=== PATIENT | female | born 1975 | race African-American/Black ===

== ENCOUNTER 2017-02-07 11:14 | Outpatient (CLI) | payer BC ==
[2017-02-07] MEDS ORDERED: DEXTROSE 5%-LACTATED RINGERS 1,000 ML IV SCH (11:45)
[2017-02-07] MEDS ORDERED: ACETAMINOPHEN IV (For NPO) 1,000 MG in EMPTY BAG 1 BAG IVPB ONE (12:00)
[2017-02-07 12:13] VITALS: BP 119/67; PULSE 105; RESP 18; TEMP 97.9
--- NOTE | 2017-03-09 09:21 | P.MSEPDOC ---
Presenting Problems - Arrival Data Date of Arrival on Unit: 02/07/17 Time of Arrival on Unit: 11:19 Mode of Transport: Wheelchair - Complaint OB-Reason for Admission/Chief Complaint: Observation/Evaluation, Dizziness Comment: pt feeling flu like symptoms, body aches, dizzy Medical History - Information : 4 Para: 1 Term: 1 : 0 Abortions: Spontaneous or Elective: 2 Number of Living Children: 1 - Gestational Age Gestational Age by JOSE MARIA (wks/days): 36 Weeks and 6 Days Review of Systems - Review of Systems Constitutional: No problems Breast: No problems ENT: No problems Cardiovascular: No problems Respiratory: No problems Gastrointestinal: No problems Genitourinary: No problems Musculoskeletal: No problems Neurological: Dizziness Skin: No problems Vital Signs - Temperature Temperature: 97.9 F Temperature Source: Oral - Pulse Right Sitting Brachial Pulse Rate: 105 Pulse Assessment Method: Automatic Cuff - Respirations Respiratory Rate: 18 O2 Sat by Pulse Oximetry: 99 - Blood Pressure Right Arm Blood Pressure: 119/67 Blood Pressure Mean: 84 Blood Pressure Source: Automatic Cuff Medical Screen Scoring (Pre) - Cervical Exam Dilation: Exam Deferred Effacement: Exam Deferred Membranes: Intact - Uterine Contractions Frequency: N/A - Maternal Vital Signs Maternal Temperature: N/A - Maternal Trauma Maternal Trauma: N/A - Assessment Baseline FHR: 135 Heart Rate - NICHD Category: Category I (Normal) = 0 NST: Reactive Station: N/A - Total Score Total Score (Pre): 0 - Level of Risk Level of Risk: Low (0-5) Physician Notification (Pre) - Physician Notified Physician Notified Date: 02/07/17 Physician Notified Time: 11:35 Physician/Practitioner Notifed:: Cassie Spoke With: Cassie New Order Received: Yes - Notification Comment Comment: pt discharged home per drs order Disposition - Disposition OB Disposition: Discharge to home Discharge Date: 02/07/17 Discharge Time: 12:31 I agree with the RN Medical Screening Exam: Yes Risk & Benefit of care provided described in d/c instruction: Yes Diagnosis: FALSE LABOR AT OR AFTER 37 COMPLETED WEEKS OF GESTATION
== END 2017-02-07 12:32 | disposition home or self-care (01) ==
LOC: FBPOP 11:14
PROVIDERS: ATTEND Obstetrics & Gynecology
DX: O47.1 False labor at or after 37 completed weeks of gestation (principal); Z3A.36 36 weeks gestation of pregnancy
CPT/HCPCS: 59025; 99214; 96360; 96367; J0131

== ENCOUNTER 2017-02-23 22:42 | Inpatient (IN) | payer BC ==
[2017-02-23] MEDS ORDERED: ceFAZolin 2 GM in SODIUM CHLORIDE 0.9% 100 ML IVPB ONE (23:01)
[2017-02-23] MEDS ORDERED: CITRIC ACID-SODIUM CITRATE 15 ML CUP PO ONE (23:01)
[2017-02-23] MEDS ORDERED: LACTATED RINGERS 1,000 ML IV ONE (23:01)
[2017-02-23] MEDS ORDERED: MORPHINE SULFATE (PF) 0.3 MG/0.3 ML SYR ONE (23:08)
[2017-02-23] MEDS ORDERED: NALBUPHINE 10 MG/ML AMPUL ONE (23:08)
[2017-02-23] MEDS ORDERED: ONDANSETRON 4 MG/2 ML VIAL ONE (23:08)
[2017-02-23] MEDS ORDERED: OXYTOCIN 10 UNIT/ML 1 ML VIAL ONE (23:08)
[2017-02-23] MEDS ORDERED: ePHEDrine SULFATE/0.9% NACL/PF 50 MG/5 ML SYRINGE IV ONE (23:08)
--- NOTE | 2017-02-24 00:11 | P.HPOB ---
History of Present Illness H&P Date: 02/24/17 Chief Complaint: Contractions, term , history of 1, spontaneous rupture This is a 42-year-old 4 para 10-1 at 39-0/7 weeks. She presents to labor and delivery with complaints of rupture of membranes, clear in nature at 2145. She states she has been mark most of the day and this began around 4 PM when they became regular. On presentation she was 7 cm dilated and the was called at that time. Anesthesia was present. She noted good movement throughout the day and denied vaginal bleeding at this time. blood work showed a blood type of O+ she was rubella immune, her RPR was nonreactive, hepatitis surface antigen negative, HIV negative. Past Medical History Past Medical History: Skin Disorder Additional Past Medical History / Comment(s): varicose veins,eczema cecelia feet History of Any Multi-Drug Resistant Organisms: None Reported Past Surgical History: Section, Orthopedic Surgery Additional Past Surgical History / Comment(s): left knee bone bx Past Anesthesia/Blood Transfusion Reactions: Family History of Problems w/ Anesthesia Additional Past Anesthesia/Blood Transfusion Reaction / Comment(s): mother has PONV,no problems with prior blood transfusion Smoking Status: Never smoker - Past Family History Father Family Medical History: No Reported History Mother Family Medical History: No Reported History Medications and Allergies Home Medications Medication Instructions Recorded Confirmed Type Ferrous Sulfate [Iron] 325 mg PO DAILY 02/23/17 02/23/17 History Yor-Mwrh-Ngcqo Acid 1 cap PO DAILY 02/23/17 02/23/17 History [-U Capsule (formulary)] Allergies Allergy/AdvReac Type Severity Reaction Status Date / Time aspirin Allergy Rash/Hives Verified 02/23/17 22:47 coconut Allergy Itching Verified 02/23/17 22:47 codeine Allergy chills Verified 02/23/17 22:47 egg Allergy Itching Verified 02/23/17 22:47 erythromycin base Allergy Rash/Hives Verified 02/23/17 22:47 latex Allergy Rash/Hives Verified 02/23/17 22:47 onion Allergy Itching Verified 02/23/17 22:47 tree nut [Nut] Allergy Itching Verified 02/23/17 22:47 Exam Osteopathic Statement: *. No significant issues noted on an osteopathic structural exam other than those noted in the History and Physical/Consult. - Vital Signs Vital signs: Vital Signs Temp Pulse Resp BP 02/23/17 22:48 98.2 F 81 18 126/94 Intake and Output 02/23/17 02/23/17 02/24/17 14:59 22:59 06:59 Other: Weight 87.09 kg Patient Weight 02/24/17 06:59 Weight 87.09 kg - OBG Physical Exam Abdomen: Gravid and appropriate for gestational age Cervix: 8 cm, 90%, -1 station Uterus: enlarged Assessment and Plan (1) Term Status: Acute (2) H/O section Narrative/Plan: Proceed with repeat per prior conversation in the office with patient. Risks were reviewed with patient in detail at that time in the office including but not limited to infection bleeding damage to bladder, bowel, ureteric, injury. Informed consent was obtained at that visit in the office. All questions were answered to patient's satisfaction Status: Acute (3) SROM (spontaneous rupture of membranes) Status: Acute (4) Active labor at term Status: Acute
[2017-02-24 00:16] VITALS: BMI 27.5
[2017-02-24] MEDS ORDERED: IBUPROFEN 600 MG TAB PO PRN (00:16)
[2017-02-24] MEDS ORDERED: ONDANSETRON 4 MG/2 ML VIAL IVP PRN (00:16)
--- NOTE | 2017-02-24 00:16 | P.OP ---
Date of Procedure: 02/24/17 Preoperative Diagnosis: IUP at 39-0/7 weeks, active labor, spontaneous rupture of membranes, history of 1 desires repeat Postoperative Diagnosis: Same Procedure(s) Performed: Repeat section Anesthesia: spinal Surgeon: Lawanda Guillen [employer]: [employer] Estimated Blood Loss (ml): 600 IV fluids (ml): 800 Urine output (ml): 50 Pathology: other (Placenta) Condition: stable Disposition: PACU Indications for Procedure: History of 1, desires repeat Operative Findings: Normal ovaries bilaterally Description of Procedure: Patient was taken to the operating room where spinal anesthesia was found to be adequate by the anesthesia department. She was prepped and draped in the normal sterile fashion in the dorsal supine position. A Pfannenstiel skin incision was made through her prior incision down to the underlying layer of fascia the fascia was then incised in the midline and this incision was extended laterally. The superior aspect of the fascial incision was then grasped with [place] clamps, elevated and underlying rectus muscle was dissected off sharply and bluntly. The inferior aspect of the fascial incision was then grasped with [place] clamps elevated with the underlying rectus muscle dissected off sharply once again. The rectus muscles were in the midline and peritoneum was identified and entered. The bladder blade was then introduced into the abdomen and a bladder flap was then created using sharp and blunt dissection. The bladder blade was then reinserted. Scalpel was then used to make a hysterotomy incision, clear amniotic fluid was noted. The was then delivered atraumatically and handed off to waiting pediatric surgeon. The placenta was then delivered manually and the uterus was cleared of all clots and debris. The uterus was then exteriorized and the hysterotomy incision was closed with 0 Vicryl in a running locked fashion. A defect was noted on the right side of the hysterotomy incision therefore 0 Vicryl in a running fashion was used to repair. Hemostasis was appreciated. The uterus was then returned to the abdomen. The gutters were cleared of all clots and debris the hysterotomy site was inspected once again hemostasis was noted. The fascial incision was then closed with 0 Vicryl in a running fashion from one lateral edge the midline and the other lateral edge the midline. The subcutaneous tissue was then irrigated, hemostasis was appreciated and the skin was closed with 4-0 Vicryl in a subcuticular fashion. Steri-Strips and a pressure dressing were applied. All counts were correct 2 patient tolerated procedure well and was taken to her room in stable condition
[2017-02-24] MEDS ORDERED: HYDROcodone/APAP 5-325MG 1 EACH TAB PO PRN ×2 (00:19)
[2017-02-24 01:24] LABS: Basophils % (A) 0 %; CH 28.9; CHCM 33.2; Eosinophils % (A) 0 %; HCT 36.3 % (34.0-46.0); HGB 11.8 gm/dL (11.4-16.0); Luc # (Auto) 0.06; Luc % (Auto) 0; Lymphocytes # (A) 1.1 k/uL (1.0-4.8); Lymphocytes % (A) 7 %; MCH 28.4 pg (25.0-35.0); MCHC 32.4 g/dL (31.0-37.0); MCV 87.8 fL (80.0-100.0); Mean Platelet Volume 7.9; Monocytes # (A) 0.4 k/uL (0-1.0); Monocytes % (A) 3 %; Neutrophils # (A) 13.5 k/uL (1.3-7.7); Neutrophils % (A) 90 %; RBC 4.14 m/uL (3.80-5.40); RDW 14.5 % (11.5-15.5); WBC 15.1 k/uL (3.8-10.6); WBC (Perox) 17.08
[2017-02-24] MEDS: LACTATED RINGERS 1,000 ML IV SCH ×4 (01:29→16:33)
[2017-02-24] MEDS: KETOROLAC 30 MG/ML 1 ML VIAL IVP PRN (02:24)
--- NOTE | 2017-02-24 05:37 | P.PN ---
Subjective Principal diagnosis: Status post repeat , hemorrhage This is a very pleasant 41-year-old 0-1 that presented last evening with complaints of rupture of membranes, painful contractions. She was noted to be 8 cm when I arrived incision was made to take the patient back to the operating room for repeat . went well upon leaving the operating room clear yellow urine was noted uterus was firm below the umbilicus bleeding was scant at that time. Sometime around 4 AM patient was noted to have increased bleeding and uterus was noted to be 2 finger breaths above the umbilicus. She had proximal he 150 mL out since surgery and at this point after multiple Cred attempts urine had turned pink. I was called to see the patient upon examination the uterus is noted to be full of large clots. Approximately 3-400 mL of clots were removed from the uterine cavity. The Tomlin catheter was inspected pink tinged urine was still noted and a 500 mL bolus of LR was started Objective - Vital Signs Vital signs: Vital Signs Temp 98.0 F 02/24/17 04:15 Pulse 96 02/24/17 04:15 Resp 16 02/24/17 04:15 BP 129/70 02/24/17 04:15 Pulse Ox 98 02/24/17 02:52 Intake & Output 02/23/17 02/23/17 02/24/17 06:59 18:59 06:59 Output Total 100 Balance -100 Weight 87.09 kg Output: Urine 100 Uretheral (Tomlin) 0 - Constitutional General appearance: Present: average body habitus, cooperative, no acute distress - Respiratory Respiratory: bilateral: CTA - Genitourinary Genitourinary Comment(s): On initial exam uterus is noted to be enlarged and above the umbilicus, after Cred attempts uterus was firm to below or at the umbilicus - Labs CBC & Chem 7: 02/24/17 01:07 Labs: Abnormal Lab Results - Last 24 Hours (Table) 02/24/17 Range/Units 01:07 WBC 15.1 H (3.8-10.6) k/uL Neutrophils # 13.5 H (1.3-7.7) k/uL Assessment and Plan (1) Term Status: Acute (2) H/O section Status: Acute (3) SROM (spontaneous rupture of membranes) Status: Acute (4) Active labor at term Status: Acute (5) atony of uterus with hemorrhage Narrative/Plan: Stat CBC was obtained Will monitor urine output and 500 mL bolus of LR was begun upon entry to the room. In addition Kefzol 1 G Every 83 Will Be Started Status: Acute
[2017-02-24] MEDS ORDERED: METHYLERGONOVINE 0.2 MG/ML 1 ML AMP IM ONE (05:47)
[2017-02-24 06:14] LABS: Basophils % (A) 0 %; CH 28.9; CHCM 32.8; Eosinophils % (A) 0 %; HCT 29.6 % (34.0-46.0); HDW 2.79; Luc # (Auto) 0.15; Luc % (Auto) 1; Lymphocytes # (A) 1.4 k/uL (1.0-4.8); Lymphocytes % (A) 9 %; MCH 29.1 pg (25.0-35.0); MCHC 32.8 g/dL (31.0-37.0); MCV 88.6 fL (80.0-100.0); Mean Platelet Volume 8.7; Monocytes # (A) 0.5 k/uL (0-1.0); Monocytes % (A) 4 %; Neutrophils # (A) 13.1 k/uL (1.3-7.7); Neutrophils % (A) 86 %; RBC 3.34 m/uL (3.80-5.40); RDW 14.3 % (11.5-15.5); WBC 15.2 k/uL (3.8-10.6)
[2017-02-24 06:26] LABS: HGB 9.7 gm/dL (11.4-16.0)
[2017-02-24] MEDS ORDERED: OXYTOCIN 20 UNITS/1000 ML NS 1,000 ML IV SCH (06:45)
[2017-02-24] MEDS ORDERED: MISOPROSTOL 200 MCG TAB RECTAL STA (06:53)
[2017-02-24] MEDS ORDERED: MORPHINE SULFATE 4 MG/ML SYRINGE IVP PRN (07:28)
[2017-02-24] MEDS ORDERED: METOCLOPRAMIDE 5 MG/ML 2 ML VIAL IVP PRN (08:07)
[2017-02-24] MEDS ORDERED: NALBUPHINE 10 MG/ML AMPUL IV PRN (08:07)
[2017-02-24] MEDS ORDERED: PROMETHAZINE INJ 6.25 MG in SODIUM CHLORIDE 0.9% 50 ML IVPB PRN (08:07)
[2017-02-24] MEDS ORDERED: NALOXONE 0.4 MG/ML 1 ML VIAL IV PRN ×2 (08:07→12:26)
[2017-02-24] MEDS ORDERED: diphenhydrAMINE 50 MG/ML 1 ML VIAL IVP PRN (08:07)
--- NOTE | 2017-02-24 08:24 | P.PNOBGPC ---
Subjective - Subjective Principal diagnosis: IUP at 39-0/7 weeks, spontaneous rupture of membranes, active labor, postpa Interval history: After her Monse was noted to have hemorrhage. She was given an extra bag of Pitocin per protocol, and Methergine. Urine output has been noted to be decreased most likely secondary to her bleeding. hemoglobin was noted to go from 11.8-9.8. She has had stable vital signs the entire time. Approximately 727 this morning I received another phone call with concern from the nurse that the patient was uncomfortable with plan of care. She had recently had Cytotec 1000 g placed rectally. Her bleeding was noted to be stable at the time and her fundus was firm at the umbilicus. She noted minimal urine output at this time but there was urine in the catheter. Dr. Matthews was on the unit at the time she went in to evaluate the patient she stated that the uterus was firm she did manual exploration of the uterine cavity she noted the cervix to be 5-6 cm dilated approximately 200 mL of clot were evacuated from the lower uterine segment. She felt that the uterus was firming up and the patient was stable and doing well at this time. I came to see the patient approximately 740 10/05/1950 at this time she was holding her infant her uterus was firm there was yellow urine in the Tomlin catheter and her vital signs were noted to be stable. She was noted to be a little tachycardic but her heart rate had been coming down since her manual exploration from Dr. Matthews. Her pain is well controlled. She states she is hungry and she wishes to keep breakfast. Patient reports: Reports appetite normal, Reports pain well controlled : doing well (At the bedside) Objective - Vital Signs Latest vital signs: Vital Signs Temp Pulse Resp BP Pulse Ox 02/24/17 08:00 120 H 02/24/17 06:45 81 16 107/59 02/24/17 06:20 95 16 116/53 02/24/17 06:01 99 16 103/64 02/24/17 05:50 116 H 16 131/71 02/24/17 05:40 100 16 110/67 02/24/17 04:15 98.0 F 96 16 129/70 02/24/17 02:52 98 02/24/17 02:06 64 16 123/64 02/24/17 01:36 65 16 122/59 02/24/17 01:06 65 16 120/58 02/24/17 00:51 92 16 124/62 02/24/17 00:36 62 16 126/61 02/24/17 00:21 71 16 146/65 02/24/17 00:03 97.8 F 80 16 111/56 02/24/17 00:00 98.2 F 81 18 126/94 02/23/17 22:48 98.2 F 81 18 126/94 Intake and Output 02/23/17 02/24/17 02/24/17 22:59 06:59 14:59 Output Total 150 Balance -150 Output: Urine 150 Uretheral (Tomlin) 0 Other: Voiding Method Indwelling Catheter Weight 87.09 kg - Exam Abdomen: Present: normal appearance Incision: Present: normal, intact Uterus: Present: firm - Labs Labs: Abnormal Lab Results - Last 24 Hours (Table) 02/24/17 02/24/17 Range/Units 01:07 05:52 WBC 15.1 H 15.2 H (3.8-10.6) k/uL RBC 3.34 L (3.80-5.40) m/uL Hgb 9.7 L D (11.4-16.0) gm/dL Hct 29.6 L (34.0-46.0) % Neutrophils # 13.5 H 13.1 H (1.3-7.7) k/uL Assessment and Plan (1) Term Current Visit: Yes Status: Acute Code(s): Z34.80 - ENCOUNTER FOR SUPRVSN OF NORMAL , UNSP TRIMESTER SNOMED Code(s): 19630546 (2) H/O section Current Visit: Yes Status: Acute Code(s): Z98.891 - HISTORY OF UTERINE SCAR FROM PREVIOUS SURGERY SNOMED Code(s): 237932831 (3) SROM (spontaneous rupture of membranes) Current Visit: Yes Status: Acute Code(s): ZRM8829 - SNOMED Code(s): 253227319 (4) Active labor at term Current Visit: Yes Status: Acute Code(s): MEM1584 - SNOMED Code(s): 24128052 (5) atony of uterus with hemorrhage Narrative/Plan: We will continue to monitor closely, CBC this evening for further evaluation of acute blood loss anemia. Close evaluation of urine output and will initiate a 500 mL LR bolus of fluids Current Visit: Yes Status: Acute Code(s): O72.1 - OTHER IMMEDIATE HEMORRHAGE SNOMED Code(s): 35519378
[2017-02-24] MEDS: PRENATAL VIT-IRON-FOLIC ACID 1 EACH CAP PO SCH (08:50)
[2017-02-24] MEDS: FERROUS SULFATE 325 MG TAB PO SCH (08:50)
[2017-02-24] MEDS: ceFAZolin 1,000 MG in DEXTROSE/WATER 1 50ML.BAG IVPB SCH ×2 (08:51→16:05)
--- NOTE | 2017-02-24 12:26 | P.PN ---
Progress Note - Text Date:02/04 Time:646 Patient is status post []. Patient seen this morning with VAS score of [2].no c/o of pruritus, no c/o nausea/vomiting, comfortable and doing well.
[2017-02-24 15:37] LABS: CH 27.9; CHCM 31.3; HCT 21.9 % (34.0-46.0); HDW 2.78; Hypochromasia Slight; MCH 29.4 pg (25.0-35.0); MCHC 32.8 g/dL (31.0-37.0); MCV 89.8 fL (80.0-100.0); RBC 2.43 m/uL (3.80-5.40); WBC 13.5 k/uL (3.8-10.6)
[2017-02-24 15:45] LABS: HGB 7.2 gm/dL (11.4-16.0)
[2017-02-24] MEDS: ACETAMINOPHEN TAB 325 MG TAB PO PRN (19:53)
[2017-02-24] MEDS: SENNOSIDES-DOCUSATE SODIUM 1 EACH TAB PO SCH (19:53)
[2017-02-25] MEDS: ceFAZolin 1,000 MG in DEXTROSE/WATER 1 50ML.BAG IVPB SCH (00:16)
[2017-02-25] MEDS: LACTATED RINGERS 1,000 ML IV SCH ×2 (03:32→20:14)
[2017-02-25] MEDS: KETOROLAC 30 MG/ML 1 ML VIAL IVP PRN (06:51)
--- NOTE | 2017-02-25 08:14 | P.PNOBGPC ---
Subjective - Subjective Principal diagnosis: Status post repeat , hemorrhage Patient reports: Reports appetite normal, Reports pain well controlled, Reports ambulating normally : doing well (At the bedside with mom) Objective - Vital Signs Latest vital signs: Vital Signs Temp Pulse Resp BP Pulse Ox 02/25/17 05:00 99.1 F 02/25/17 03:35 99.0 F 100 15 119/58 99 02/25/17 00:00 98.9 F 94 16 116/59 98 02/24/17 20:00 99.3 F 106 H 16 113/60 98 02/24/17 15:54 98.2 F 103 H 18 119/60 02/24/17 15:53 99 02/24/17 13:00 16 02/24/17 12:00 102 H 16 119/56 100 02/24/17 11:07 15 02/24/17 09:07 100 Intake and Output 02/24/17 02/25/17 02/25/17 22:59 06:59 14:59 Intake Total 2650 100 Output Total 300 2150 200 Balance 2350 -2049 -200 Intake: IV 1150 Lactated Ringers 1,000 ml 1000 @ 125 mls/hr IV .Q8H CHANA Rx#:[id number] ceFAZolin 1,000 mg In 150 Dextrose/Water 1 50ml.bag @ 100 mls/hr IVPB Q8HR FORMERLY [facility], [facility]–1983 Rx#:[id number] Intake, IV Titration 900 100 Amount Lactated Ringers 1,000 ml 900 @ 4000 mls/hr IV .Q15M ONE Rx#:[id number] ceFAZolin 1,000 mg In 100 Dextrose/Water 1 50ml.bag @ 100 mls/hr IVPB Q8HR FOR[facility], 1928–1983 Rx#:[id number] Oral 600 Output: Urine 300 2150 200 Uretheral (Tomlin) 1400 Other: # Voids 1 # Bowel Movements 0 - Exam Lungs: bilateral: normal Extremities: Present: normal Abdomen: Present: normal appearance Incision: Present: normal, dry, intact Uterus: Present: firm - Labs Labs: Abnormal Lab Results - Last 24 Hours (Table) 02/24/17 Range/Units 15:26 WBC 13.5 H (3.8-10.6) k/uL RBC 2.43 L (3.80-5.40) m/uL Hgb 7.2 L D (11.4-16.0) gm/dL Hct 21.9 L (34.0-46.0) % Assessment and Plan (1) Term Current Visit: Yes Status: Acute Code(s): Z34.80 - ENCOUNTER FOR SUPRVSN OF NORMAL , UNSP TRIMESTER SNOMED Code(s): 74407691 (2) H/O section Narrative/Plan: Monse is doing well this morning. She is ambulating without difficulty. She is without fever or chills. Her lochia is scant at this time. She denies pain, we are awaiting spontaneous void after Tomlin removal early this morning. She had an adequate output of approximately 1400 mL overnight. She is breast- feeding without difficulty baby girl sury Current Visit: Yes Status: Acute Code(s): Z98.891 - HISTORY OF UTERINE SCAR FROM PREVIOUS SURGERY SNOMED Code(s): 375917792 (3) SROM (spontaneous rupture of membranes) Current Visit: Yes Status: Acute Code(s): IAP6118 - SNOMED Code(s): 438789407 (4) Active labor at term Current Visit: Yes Status: Acute Code(s): LMK7654 - SNOMED Code(s): 15300555 (5) atony of uterus with hemorrhage Current Visit: Yes Status: Acute Code(s): O72.1 - OTHER IMMEDIATE HEMORRHAGE SNOMED Code(s): 02772693 (6) Acute blood loss anemia Narrative/Plan: Stable at this time will await morning hemoglobin. She is without dizziness with ambulation. We will plan to keep Monse in-house until tomorrow. If she continues to be stable we will consider discharge tomorrow morning Current Visit: Yes Status: Acute Code(s): D62 - ACUTE POSTHEMORRHAGIC ANEMIA SNOMED Code(s): 892914644
[2017-02-25 08:33] LABS: Basophils % (A) 0 %; CH 28.3; CHCM 31.7; Eosinophils # (A) 0.1 k/uL (0-0.7); Eosinophils % (A) 0 %; HDW 2.72; Hypochromasia Slight; Luc # (Auto) 0.19; Luc % (Auto) 2; Lymphocytes # (A) 1.6 k/uL (1.0-4.8); Lymphocytes % (A) 13 %; MCH 28.2 pg (25.0-35.0); MCHC 31.4 g/dL (31.0-37.0); MCV 89.8 fL (80.0-100.0); Mean Platelet Volume 8.3; Monocytes # (A) 0.5 k/uL (0-1.0); Monocytes % (A) 4 %; Neutrophils % (A) 81 %; RBC 2.05 m/uL (3.80-5.40); RDW 14.3 % (11.5-15.5); WBC 12.3 k/uL (3.8-10.6); WBC (Perox) 12.75
[2017-02-25 08:36] LABS: HGB 5.8 gm/dL (11.4-16.0)
[2017-02-25 08:37] LABS: HCT 18.4 % (34.0-46.0)
[2017-02-25] MEDS: PRENATAL VIT-IRON-FOLIC ACID 1 EACH CAP PO SCH (10:48)
[2017-02-25] MEDS: FERROUS SULFATE 325 MG TAB PO SCH (10:48)
[2017-02-25] MEDS: SENNOSIDES-DOCUSATE SODIUM 1 EACH TAB PO SCH ×2 (10:49→20:15)
[2017-02-25 18:26] LABS: CH 29.3; CHCM 33.4; HCT 20.6 % (34.0-46.0); HDW 2.99; MCH 28.7 pg (25.0-35.0); MCHC 32.5 g/dL (31.0-37.0); MCV 88.5 fL (80.0-100.0); Mean Platelet Volume 8.2; RBC 2.33 m/uL (3.80-5.40); RDW 14.5 % (11.5-15.5); WBC 13.5 k/uL (3.8-10.6)
[2017-02-25 18:42] LABS: HGB 6.7 gm/dL (11.4-16.0)
[2017-02-26] MEDS: ACETAMINOPHEN TAB 325 MG TAB PO PRN ×2 (03:28→13:10)
--- NOTE | 2017-02-26 08:26 | P.PNOBGPC ---
Subjective - Subjective Principal diagnosis: day #3 status post repeat , hemorrhage Interval history: Monse did well overnight. Today her only complaint is uterine contractions with nursing. She states her lochia is minimal. She denies pain, and has only been using Tylenol for discomfort. She is ambulating without lightheadedness, dizziness. She denies any dysuria. She is afebrile. Patient reports: Reports appetite normal, Reports voiding normally, Reports pain well controlled, Reports ambulating normally [place]: doing well Objective - Vital Signs Latest vital signs: Vital Signs Temp Pulse Pulse Resp BP BP Pulse Ox 02/26/17 00:00 98.0 F 80 16 118/74 02/25/17 16:00 98.7 F 99 16 115/62 100 02/25/17 12:00 99 02/25/17 10:57 98.1 F 92 16 107/57 100 02/25/17 10:27 98.3 F 97 16 114/63 99 02/25/17 10:19 98.9 F 97 16 104/55 98 02/25/17 10:12 98.4 F 95 16 110/50 98 02/25/17 10:07 98.9 F 95 16 102/54 98 02/25/17 09:57 98.7 F 104 H 16 99/57 99 02/25/17 09:47 98.6 F 97 16 117/57 99 Intake and Output 02/25/17 02/26/17 02/26/17 22:59 06:59 14:59 Output Total 800 400 Balance -800 -400 Output: Urine 800 400 - Exam Lungs: bilateral: normal Extremities: Present: normal Abdomen: Present: normal appearance Incision: Present: normal, dry, intact (Old blood noted on Steri-Strips, nothing active) Uterus: Present: firm (Some tenderness noted) - Labs Labs: Abnormal Lab Results - Last 24 Hours (Table) 02/24/17 02/25/17 02/25/17 Range/Units 01:07 08:11 18:08 WBC 12.3 H 13.5 H (3.8-10.6) k/uL RBC 2.05 L 2.33 L (3.80-5.40) m/uL Hgb 5.8 L* 6.7 L* (11.4-16.0) gm/dL Hct 18.4 L* 20.6 L (34.0-46.0) % Neutrophils # 10.0 H (1.3-7.7) k/uL Crossmatch See Detail Assessment and Plan (1) Term Current Visit: Yes Status: Acute Code(s): Z34.80 - ENCOUNTER FOR SUPRVSN OF NORMAL , UNSP TRIMESTER SNOMED Code(s): 25941815 (2) H/O section Current Visit: Yes Status: Acute Code(s): Z98.891 - HISTORY OF UTERINE SCAR FROM PREVIOUS SURGERY SNOMED Code(s): 423277795 (3) SROM (spontaneous rupture of membranes) Current Visit: Yes Status: Acute Code(s): BUY2912 - SNOMED Code(s): 333421787 (4) Active labor at term Current Visit: Yes Status: Acute Code(s): ERR5428 - SNOMED Code(s): 54655570 (5) atony of uterus with hemorrhage Narrative/Plan: 1 unit of packed red blood cells was given yesterday, repeat hemoglobin showed 1 g increase. She has doing well and feeling well. Plan for today is to discharge home with continuation of vitamin daily, iron twice daily. Current Visit: Yes Status: Acute Code(s): O72.1 - OTHER IMMEDIATE HEMORRHAGE SNOMED Code(s): 47877925 (6) Acute blood loss anemia Current Visit: Yes Status: Acute Code(s): D62 - ACUTE POSTHEMORRHAGIC ANEMIA SNOMED Code(s): 557407830
--- NOTE | 2017-02-26 08:30 | P.DS ---
Providers Date of admission: 02/23/17 22:48 Expected date of discharge: 02/26/17 Attending physician: Lawanda Guillen Primary care physician: Stated None - Discharge Diagnosis(es) (1) Term Current Visit: Yes Status: Acute (2) H/O section Is a very pleasant 41-year-old 4 para 10-1 presented to labor and delivery with complaints of spontaneous rupture of membranes, clear in nature, contractions. On physical exam she was noted to be 7 cm dilated therefore the decision was made to proceed with repeat as was discussed in the office. Postoperatively she had a significant hemorrhage. Subsequently telling us on postop day #2 that she received 2 units of blood after her last delivery in addition. She did receive Pitocin and Methergine and Cytotec for her hemorrhage with significant acute blood loss anemia noted. She received 1 unit of packed red blood cells on postoperative day #2, and did well afterwards. Today on postop day #3 she is feeling well she is ambulating and voiding without difficulty. She is tolerating a regular diet and wishes to be discharged home. Current Visit: Yes Status: Acute (3) SROM (spontaneous rupture of membranes) Current Visit: Yes Status: Acute (4) Active labor at term Current Visit: Yes Status: Acute (5) atony of uterus with hemorrhage Current Visit: Yes Status: Acute (6) Acute blood loss anemia Current Visit: Yes Status: Acute Plan - Discharge Summary New Discharge Prescriptions: No Action Uyf-Zzfs-Qkxef Acid [-U Capsule (formulary)] 1 cap PO DAILY Ferrous Sulfate [Iron] 325 mg PO DAILY Discharge Medication List Ferrous Sulfate [Iron] 325 mg PO DAILY 02/23/17 [History] Ipm-Mwoc-Vkgrx Acid [-U Capsule (formulary)] 1 cap PO DAILY [History] Follow up Appointment(s)/Referral(s): Lawanda Guillen DO [Doctor of Osteopathic Medicine] - 1 Week Patient Instructions/Handouts: Bleeding (DC), (DC) Discharge Disposition: HOME SELF-CARE
[2017-02-26 09:28] VITALS: BP 134/58; PULSE 88; RESP 18; TEMP 98.5
[2017-02-26] MEDS: SENNOSIDES-DOCUSATE SODIUM 1 EACH TAB PO SCH (10:25)
[2017-02-26] MEDS: PRENATAL VIT-IRON-FOLIC ACID 1 EACH CAP PO SCH (11:50)
[2017-02-26] MEDS: FERROUS SULFATE 325 MG TAB PO SCH (11:50)
== END 2017-02-26 16:05 | disposition home or self-care (01) | DRG 765 ==
LOC: FBPOP 22:42 → 4FBP 22:48
PROVIDERS: ADMIT Obstetrics & Gynecology Obstetrics; ATTEND Obstetrics & Gynecology Obstetrics
PROC: 10D00Z1 Extraction of Products of Conception, Low, Open Approach (ICD-10-PCS; principal; 2017-02-24)
PROC: 30233N1 Transfusion of Nonautologous Red Blood Cells into Peripheral Vein, Percutaneous Approach (ICD-10-PCS; 2017-02-24)
PROC: 3E0R3NZ Introduction of Analgesics, Hypnotics, Sedatives into Spinal Canal, Percutaneous Approach (ICD-10-PCS; 2017-02-24)
PROC: 00HU33Z Insertion of Infusion Device into Spinal Canal, Percutaneous Approach (ICD-10-PCS; 2017-02-24)
DX: O34.211 Maternal care for low transverse scar from previous cesarean delivery (principal); O72.1 Other immediate postpartum hemorrhage; D62 Acute posthemorrhagic anemia; O90.81 Anemia of the puerperium; R00.0 Tachycardia, unspecified; Z37.0 Single live birth; Z3A.39 39 weeks gestation of pregnancy; Z88.6 Allergy status to analgesic agent; Z88.1 Allergy status to other antibiotic agents; Z91.012 Allergy to eggs; Z91.018 Allergy to other foods; Z87.2 Personal history of diseases of the skin and subcutaneous tissue
CPT/HCPCS: 59025; 85025; 85027; 86850; 86900; 86901; 86920; 88307; 99213

== ENCOUNTER 2019-05-10 13:05 | Emergency (ER) | payer BC ==
[2019-05-10 13:18] VITALS: RESP 18; TEMP 98.2
[2019-05-10 17:57] LABS: Amphetamine Screen,Urine Not Detected (NotDetected); Barbiturate Screen,Urine Not Detected (NotDetected); Benzodiazepines Screen,Urine Not Detected (NotDetected); Cocaine Screen,Urine Not Detected (NotDetected); Methadone Screen, Urine Not Detected (NotDetected); Opiate Screen,Urine Not Detected (NotDetected); Oxycodone Screen, Urine Not Detected (NotDetected); Phencyclidine Screen,Urine Not Detected (NotDetected); Tricyclic Antidepressant,Urine Not Detected (NotDetected); Urn Cannabinoid Scrn Not Detected (NotDetected)
--- NOTE | 2019-05-10 18:13 | ED ---
General Adult HPI - General Chief complaint: Psychiatric Symptoms Stated complaint: completion supervisor order Time Seen by Provider: 05/10/19 13:29 Source: patient, RN notes reviewed, old records reviewed Mode of arrival: ambulatory Limitations: no limitations - History of Present Illness Initial comments: 44-year-old female patient presents to ED for chief complaint of court order petition. had weight petition because he reports that she is delusional and that she states that actor Derik Morton is the father for child. Patient reports that is having a petition because she wants a divorce. She does maintain that time felt to be that the father of one of her children however, I'm going to detail. Denies any suicidal or homicidal ideations. Denies previous psychiatric history. Denies any physical complaints. Systemic: Pt denies fatigue, fever/chills, rash. Pt denies weakness, night sweats, weight loss. Neuro: Pt denies headache, visual disturbances, syncope or pre-syncope. HEENT: Pt denies ocular discharge or irritation, otalgia, rhinorrhea, pharyngitis or notable lymphadenopathy. Cardiopulmonary: Pt denies chest pain, SOB, heart palpitations, dyspnea on exertion. Abdominal/GI: Pt denies abdominal pain, n/v/d. : Pt denies dysuria, burning w/ urination, frequency/urgency. Denies new onset urinary or bowel incontinence. MSK: Pt denies myalgia, loss of strength or function in extremities. Neuro: Pt denies new onset weakness, paresthesias. - Related Data Home Medications Medication Instructions Recorded Confirmed Ferrous Sulfate [Iron] 325 mg PO DAILY 02/23/17 02/23/17 Wlb-Wmcf-Rhrmk Acid 1 cap PO DAILY 02/23/17 02/23/17 [-U Capsule (formulary)] Allergies Allergy/AdvReac Type Severity Reaction Status Date / Time aspirin Allergy Rash/Hives Verified 05/10/19 13:17 coconut Allergy Itching Verified 05/10/19 13:17 codeine Allergy chills Verified 05/10/19 13:17 egg Allergy Itching Verified 05/10/19 13:17 erythromycin base Allergy Rash/Hives Verified 05/10/19 13:17 latex Allergy Rash/Hives Verified 05/10/19 13:17 onion Allergy Itching Verified 05/10/19 13:17 tree nut [Nut] Allergy Itching Verified 05/10/19 13:17 Review of Systems ROS Statement: Those systems with pertinent positive or pertinent negative responses have been documented in the HPI. ROS Other: All systems not noted in ROS Statement are negative. Past Medical History Past Medical History: Skin Disorder Additional Past Medical History / Comment(s): varicose veins,eczema cecelia feet History of Any Multi-Drug Resistant Organisms: None Reported Past Surgical History: Section, Orthopedic Surgery Additional Past Surgical History / Comment(s): left knee bone bx Past Anesthesia/Blood Transfusion Reactions: Family History of Problems w/ Anesthesia Additional Past Anesthesia/Blood Transfusion Reaction / Comment(s): mother has PONV,no problems with prior blood transfusion Past Psychological History: No Psychological Hx Reported Smoking Status: Never smoker Past Alcohol Use History: None Reported Past Drug Use History: None Reported - Past Family History Brother(s) Family Medical History: Asthma General Exam - General Exam Comments Initial Comments: Constitutional: NAD, AOX3, Pt has pleasant affect. HEENT: NC/AT, trachea midline, neck supple, no lymphadenopathy. Posterior pharynx non erythematous, without exudates. External ears appear normal, without discharge. Mucous membranes moist. Eyes PERRLA, EOM intact. There is no scleral icterus. No pallor noted. Cardiopulmonary: RRR, no murmurs, rubs or gallops, no JVD noted. Lungs CTAB in anterior and posterior villalobos. No peripheral edema. Abdominal exam: Abdomen soft and non-distended. Abdomen non-tender to palpation in all 4 quadrants. Bowel sounds active in LLQ. No hepatosplenomegaly. No ecchymosis Neuro: CN II-XII grossly intact. No nuchal rigidity. No raccon eyes, no davenport sign, no hemotympanum. No cervical spinal tenderness. MSK: No posterior calf tenderness bilaterally, homans sign negative bilaterally. Posterior tibialis and radial pulse +2 bilaterally. Sensation intact in upper and lower extremities. Full active ROM in upper and lower extremities, 5/5 stregnth. Limitations: no limitations Course Vital Signs 05/10/19 05/10/19 13:14 18:38 Temperature 98.2 F 98.2 F Pulse Rate 84 81 Respiratory 18 18 Rate Blood Pressure 146/81 137/84 O2 Sat by Pulse 100 100 Oximetry Medical Decision Making - Medical Decision Making 44-year-old female patient presents to ED for evaluation of court order petition. Patient will signs are stable, afebrile. Physical exam did not display acute pathology. Patient denies suicidal or homicidal ideations. Has no prior psychiatric history. Patient was evaluated by EPS who recommended discharge. Unable to independently verify paternity of children. Will be discharged safety plan. Will return to ER patient worsens. Case discussed with Dr. perry. - Lab Data Lab Results 05/10/19 Range/Units 17:30 Urine Opiates Screen Not Detected (NotDetected) Ur Oxycodone Screen Not Detected (NotDetected) Urine Methadone Screen Not Detected (NotDetected) Ur Propoxyphene Screen Not Detected (NotDetected) Ur Barbiturates Screen Not Detected (NotDetected) U Tricyclic Antidepress Not Detected (NotDetected) Ur Phencyclidine Scrn Not Detected (NotDetected) Ur Amphetamines Screen Not Detected (NotDetected) U Methamphetamines Scrn Not Detected (NotDetected) U Benzodiazepines Scrn Not Detected (NotDetected) Urine Cocaine Screen Not Detected (NotDetected) U Marijuana (THC) Screen Not Detected (NotDetected) Disposition Clinical Impression: Psychiatric disorder, Psychiatric follow-up Disposition: HOME SELF-CARE Condition: Stable Instructions (If sedation given, give patient instructions): Depression (ED) Additional Instructions: Follow-up with primary care provider and resources provided by emergency psychiatric services tomorrow. Return to ER if condition worsens in any way. Is patient prescribed a controlled substance at d/c from ED?: No Referrals: Jane Brown MD [Primary Care Provider] - 1-2 days
[2019-05-10 18:39] VITALS: BP 137/84; PULSE 81
== END 2019-05-10 18:38 | disposition home or self-care (01) ==
LOC: EC 13:05
DX: F99 Mental disorder, not otherwise specified (principal); Z09 Encounter for follow-up examination after completed treatment for conditions other than malignant neoplasm; Z88.6 Allergy status to analgesic agent; Z91.018 Allergy to other foods; Z88.5 Allergy status to narcotic agent; Z91.012 Allergy to eggs; Z88.1 Allergy status to other antibiotic agents; Z91.040 Latex allergy status
CPT/HCPCS: 80306; 82075; 99284

== ENCOUNTER 2020-12-07 00:19 | Emergency (ER) | payer BC ==
[2020-12-07 00:27] VITALS: TEMP 98.5
[2020-12-07] MEDS ORDERED: SODIUM CHLORIDE 0.9% 1,000 ML IV STA (00:59)
--- NOTE | 2020-12-07 01:02 | ED ---
Weakness HPI - General Chief complaint: Urogenital Stated complaint: Incontinence Time Seen by Provider: 12/07/20 00:29 Source: patient, RN notes reviewed, old records reviewed Mode of arrival: ambulatory - History of Present Illness Initial comments: This is a 45-year-old female DF for evaluation patient Dese for evaluation regards to abdominal pain back pain dizziness lightheadedness weakness. Patient has no significant medical history takes no medications denies drugs or alcohol had a significant episode of incontinence today. Had loss of bladder. Patient states through before. She was unable to stop urinating. Patient presents today over concern for dysuria, weakness lightheadedness. MD Complaint: generalized weakness, tingling -: hour(s) Location: generalized Severity: mild Severity scale (1-10): 2 Consistency: intermittent Improves with: none, evening Context: depression Associated Symptoms: denies other symptoms - Related Data Home Medications Medication Instructions Recorded Confirmed Ferrous Sulfate [Iron] 325 mg PO DAILY 02/23/17 02/23/17 Qct-Brvq-Llgll Acid 1 cap PO DAILY 02/23/17 02/23/17 [-U Capsule (formulary)] Allergies Allergy/AdvReac Type Severity Reaction Status Date / Time aspirin Allergy Rash/Hives Verified 05/10/19 13:17 coconut Allergy Itching Verified 05/10/19 13:17 codeine Allergy chills Verified 05/10/19 13:17 egg Allergy Itching Verified 05/10/19 13:17 erythromycin base Allergy Rash/Hives Verified 05/10/19 13:17 latex Allergy Rash/Hives Verified 05/10/19 13:17 tree nut [Nut] Allergy Itching Verified 05/10/19 13:17 Review of Systems ROS Statement: Those systems with pertinent positive or pertinent negative responses have been documented in the HPI. ROS Other: All systems not noted in ROS Statement are negative. Past Medical History Past Medical History: Skin Disorder Additional Past Medical History / Comment(s): varicose veins,eczema cecelia feet History of Any Multi-Drug Resistant Organisms: None Reported Past Surgical History: Section, Orthopedic Surgery Additional Past Surgical History / Comment(s): left knee bone bx Past Anesthesia/Blood Transfusion Reactions: Family History of Problems w/ Anesthesia Additional Past Anesthesia/Blood Transfusion Reaction / Comment(s): mother has PONV,no problems with prior blood transfusion Past Psychological History: No Psychological Hx Reported Smoking Status: Never smoker Past Alcohol Use History: None Reported Past Drug Use History: None Reported - Past Family History Brother(s) Family Medical History: Asthma General Exam - General Exam Comments Initial Comments: No focal neurological deficit General appearance: alert, in no apparent distress Head exam: Present: atraumatic, normocephalic, normal inspection Eye exam: Present: normal appearance, PERRL, EOMI. Absent: scleral icterus, conjunctival injection, periorbital swelling ENT exam: Present: normal exam, mucous membranes moist Neck exam: Present: normal inspection. Absent: tenderness, meningismus, lymphadenopathy Respiratory exam: Present: normal lung sounds bilaterally. Absent: respiratory distress, wheezes, rales, rhonchi, stridor Cardiovascular Exam: Present: regular rate, normal rhythm, normal heart sounds. Absent: systolic murmur, diastolic murmur, rubs, gallop, clicks GI/Abdominal exam: Present: soft, normal bowel sounds. Absent: distended, tenderness, guarding, rebound, rigid Extremities exam: Present: normal inspection, full ROM, normal capillary refill. Absent: tenderness, pedal edema, joint swelling, calf tenderness Back exam: Present: normal inspection Neurological exam: Present: alert, oriented X3, CN II-XII intact Psychiatric exam: Present: normal affect, normal mood Skin exam: Present: warm, dry, intact, normal color. Absent: rash Course Vital Signs 12/07/20 12/07/20 12/07/20 00:22 01:30 03:00 Temperature 98.5 F Pulse Rate 110 H 62 66 Respiratory 20 18 18 Rate Blood Pressure 121/66 122/67 122/67 O2 Sat by Pulse 99 99 100 Oximetry 12/07/20 06:00 Temperature Pulse Rate 88 Respiratory 16 Rate Blood Pressure 127/61 O2 Sat by Pulse 98 Oximetry - Reevaluation(s) Reevaluation #1: 12/07/20 01:02 Medical record is reviewed Patient symptoms are improved here in the ER Patient is in no acute distress Patient informed results and questions answered EKG Findings - EKG Comments: EKG Findings:: EKG is sinus rhythm 62 SD 148 QRS 90 QTC 485 Medical Decision Making - Medical Decision Making 45 female DF for evaluation of incontinence. Patient is able to ambulate without difficulty eating and drinking here in the ER, patient admits to homelessness and not eating or drinking issues also coincidentally and unable to afford food. Patient currently feeling better here in the urine and okay for discharge home - Lab Data Result diagrams: 12/07/20 01:33 12/07/20 01:33 Lab Results 12/07/20 12/07/20 12/07/20 Range/Units 00:44 01:33 01:33 WBC 8.8 (3.8-10.6) k/uL RBC 4.40 (3.80-5.40) m/uL Hgb 12.3 (11.4-16.0) gm/dL Hct 37.5 (34.0-46.0) % MCV 85.2 (80.0-100.0) fL MCH 28.0 (25.0-35.0) pg MCHC 32.8 (31.0-37.0) g/dL RDW 13.7 (11.5-15.5) % Plt Count 304 (150-450) k/uL MPV 7.6 Neutrophils % 86 % Lymphocytes % 10 % Monocytes % 3 % Eosinophils % 0 % Basophils % 0 % Neutrophils # 7.5 (1.3-7.7) k/uL Lymphocytes # 0.8 L (1.0-4.8) k/uL Monocytes # 0.3 (0-1.0) k/uL Eosinophils # 0.0 (0-0.7) k/uL Basophils # 0.0 (0-0.2) k/uL Sodium 142 (137-145) mmol/L Potassium 3.6 (3.5-5.1) mmol/L Chloride 106 (98-107) mmol/L Carbon Dioxide 16 L (22-30) mmol/L Anion Gap 20 mmol/L BUN 11 (7-17) mg/dL Creatinine 0.76 (0.52-1.04) mg/dL Est GFR (CKD-EPI)AfAm >90 (>60 ml/min/1.73 sqM) Est GFR (CKD-EPI)NonAf >90 (>60 ml/min/1.73 sqM) Glucose 64 L (74-99) mg/dL Calcium 9.9 (8.4-10.2) mg/dL Phosphorus 4.1 (2.5-4.5) mg/dL Magnesium 1.8 (1.6-2.3) mg/dL Total Bilirubin 0.7 (0.2-1.3) mg/dL AST 26 (14-36) U/L ALT 15 (4-34) U/L Alkaline Phosphatase 79 (38-126) U/L Creatine Kinase 233 H (30-135) U/L Total Protein 8.7 H (6.3-8.2) g/dL Albumin 5.0 (3.5-5.0) g/dL Urine Color Yellow Urine Appearance Cloudy H (Clear) Urine pH 6.0 (5.0-8.0) Ur Specific [place] 1.026 (1.001-1.035) Urine Protein 1+ H (Negative) Urine Glucose (UA) Negative (Negative) Urine Ketones 4+ H (Negative) Urine Blood Small H (Negative) Urine Nitrite Negative (Negative) Urine Bilirubin Negative (Negative) Urine Urobilinogen <2.0 (<2.0) mg/dL Ur Leukocyte Esterase Moderate H (Negative) Urine RBC 2 (0-5) /hpf Urine WBC 12 H (0-5) /hpf Ur Squamous Epith Cells 3 (0-4) /hpf Urine Bacteria Rare H (None) /hpf Hyaline Casts 9 H (0-2) /lpf Urine Mucus Occasional H (None) /hpf Salicylates mg/dL Acetaminophen ug/mL 12/07/20 Range/Units 01:33 WBC (3.8-10.6) k/uL RBC (3.80-5.40) m/uL Hgb (11.4-16.0) gm/dL Hct (34.0-46.0) % MCV (80.0-100.0) fL MCH (25.0-35.0) pg MCHC (31.0-37.0) g/dL RDW (11.5-15.5) % Plt Count (150-450) k/uL MPV Neutrophils % % Lymphocytes % % Monocytes % % Eosinophils % % Basophils % % Neutrophils # (1.3-7.7) k/uL Lymphocytes # (1.0-4.8) k/uL Monocytes # (0-1.0) k/uL Eosinophils # (0-0.7) k/uL Basophils # (0-0.2) k/uL Sodium (137-145) mmol/L Potassium (3.5-5.1) mmol/L Chloride (98-107) mmol/L Carbon Dioxide (22-30) mmol/L Anion Gap mmol/L BUN (7-17) mg/dL Creatinine (0.52-1.04) mg/dL Est GFR (CKD-EPI)AfAm (>60 ml/min/1.73 sqM) Est GFR (CKD-EPI)NonAf (>60 ml/min/1.73 sqM) Glucose (74-99) mg/dL Calcium (8.4-10.2) mg/dL Phosphorus (2.5-4.5) mg/dL Magnesium (1.6-2.3) mg/dL Total Bilirubin (0.2-1.3) mg/dL AST (14-36) U/L ALT (4-34) U/L Alkaline Phosphatase (38-126) U/L Creatine Kinase (30-135) U/L Total Protein (6.3-8.2) g/dL Albumin (3.5-5.0) g/dL Urine Color Urine Appearance (Clear) Urine pH (5.0-8.0) Ur Specific [place] (1.001-1.035) Urine Protein (Negative) Urine Glucose (UA) (Negative) Urine Ketones (Negative) Urine Blood (Negative) Urine Nitrite (Negative) Urine Bilirubin (Negative) Urine Urobilinogen (<2.0) mg/dL Ur Leukocyte Esterase (Negative) Urine RBC (0-5) /hpf Urine WBC (0-5) /hpf Ur Squamous Epith Cells (0-4) /hpf Urine Bacteria (None) /hpf Hyaline Casts (0-2) /lpf Urine Mucus (None) /hpf Salicylates <1.0 mg/dL Acetaminophen <10.0 ug/mL - Radiology Data Radiology results: report reviewed (CT brain CT head and pelvis negative for acute disease), image reviewed Disposition Clinical Impression: Weakness Disposition: HOME SELF-CARE Condition: Good Instructions (If sedation given, give patient instructions): Weakness (ED) Is patient prescribed a controlled substance at d/c from ED?: No Referrals: Jane Brown MD [Primary Care Provider] - 1-2 days
[2020-12-07 01:15] LABS: Appearance,Urine Cloudy (Clear); Bacteria,Urine Rare /hpf; Bilirubin,Urine Negative (Negative); Blood,Urine Small (Negative); Color,Urine Yellow; Glucose,Urine (UA) Negative (Negative); Hyaline Casts,Urine 9 /lpf (0-2); Ketones,Urine 4+ (Negative); Leukocyte Esterase,Urine Moderate (Negative); Mucus,Urine Occasional /hpf; Nitrite,Urine Negative (Negative); Protein,Urine 1+ (Negative); RBC,Urine 2 /hpf (0-5); Specific Gravity,Urine 1.026 (1.001-1.035); Squamous Epithelial Cell,Urine 3 /hpf (0-4); Urobilinogen,Urine <2.0 mg/dL (<2.0); WBC,Urine 12 /hpf (0-5)
--- NOTE | 2020-12-07 01:59 | CT ---
EXAMINATION TYPE: CT brain wo con DATE OF EXAM: 12/07/2020 COMPARISON: None HISTORY: dizzy CT DLP: 1087.4 mGycm Automated exposure control for dose reduction was used. Images obtained of the brain without contrast. Ventricles and sulci appear normal. There is no mass effect nor midline shift. There is no sign of in tracranial hemorrhage. The calvarium is intact. Skull base is intact. There is normal aeration of the mastoid sinuses. There is no evidence of cerebral edema. IMPRESSION: Negative unenhanced head CT scan.
[2020-12-07 02:08] LABS: ALT 15 U/L (4-34); AST 26 U/L (14-36); African American GFR (CKD) >90 (>60 ml/min/1.73 sqM); Alkaline Phosphatase 79 U/L (38-126); Anion Gap 20 mmol/L; Basophils % (A) 0 %; Blood Urea Nitrogen 11 mg/dL (7-17); Calcium 9.9 mg/dL (8.4-10.2); Carbon Dioxide 16 mmol/L (22-30); Chloride 106 mmol/L (98-107); Creatine Kinase 233 U/L (30-135); Eosinophils % (A) 0 %; Glucose 64 mg/dL (74-99); HCT 37.5 % (34.0-46.0); HGB 12.3 gm/dL (11.4-16.0); Lymphocytes # (A) 0.8 k/uL (1.0-4.8); Lymphocytes % (A) 10 %; MCHC 32.8 g/dL (31.0-37.0); MCV 85.2 fL (80.0-100.0); Magnesium 1.8 mg/dL (1.6-2.3); Mean Platelet Volume 7.6; Monocytes # (A) 0.3 k/uL (0-1.0); Monocytes % (A) 3 %; Neutrophils # (A) 7.5 k/uL (1.3-7.7); Neutrophils % (A) 86 %; Non-African American GFR(CKD) >90 (>60 ml/min/1.73 sqM); Phosphorus 4.1 mg/dL (2.5-4.5); Platelet Count 304 k/uL (150-450); Potassium 3.6 mmol/L (3.5-5.1); RDW 13.7 % (11.5-15.5); Sodium 142 mmol/L (137-145); Total Bilirubin 0.7 mg/dL (0.2-1.3); Total Protein 8.7 g/dL (6.3-8.2); WBC 8.8 k/uL (3.8-10.6)
--- NOTE | 2020-12-07 02:08 | CT ---
EXAMINATION TYPE: CT abdomen pelvis w con DATE OF EXAM: 12/07/2020 COMPARISON: None HISTORY: pain Incontinence CT DLP: 512.9 mGycm Automated exposure control for dose reduction was used. CONTRAST: Performed with IV Contrast, patient injected with 100 mL of Isovue 300. Images obtained from the diaphragm to the floor the pelvis with IV contrast. Lung bases are clear of infiltrate. There is no pleural effusion. Heart size is normal. There is no p ericardial effusion. Liver spleen pancreas stomach gallbladder appear intact. Bile ducts are not dilated. There is no adrenal mass. Kidneys show satisfactory contrast opacification. There is no hydronephrosi s. Ureters are not dilated. There is normal excretion on the delayed images. There is 3 cm cortical c yst medial right kidney. There is no retroperitoneal adenopathy. Bladder distends smoothly. Uterus is anteverted. There is 3.2 cm cyst on the right ovary. There is no free fluid in the pelvis. There is no sign of solid pelvic mass. There is no mesenteric edema. There is no ascites or free air. There is no sign of a bowel obstructio n. Appendix is not definitely seen. There is no sign of thickened appendix. The lumbar vertebra have normal alignment. Posterior elements are intact. Disc spaces are normal. The bony pelvis is intact. The hip joints are intact. IMPRESSION: Right ovarian cyst. No free fluid. No sign of diarrhea. Appendix not seen. No sign of appendicitis.
[2020-12-07] MEDS ORDERED: SODIUM CHLORIDE 0.9% 2,000 ML IV STA (02:54)
[2020-12-07 03:07] LABS: Acetaminophen <10.0 ug/mL; Salicylate <1.0 mg/dL
[2020-12-07 06:13] VITALS: BP 127/61; PULSE 88; RESP 16
== END 2020-12-07 06:00 | disposition home or self-care (01) ==
LOC: EC 00:19
DX: R53.1 Weakness (principal); R42 Dizziness and giddiness; M54.9 Dorsalgia, unspecified; R32 Unspecified urinary incontinence; R10.84 Generalized abdominal pain; R20.2 Paresthesia of skin; Z91.040 Latex allergy status; Z88.1 Allergy status to other antibiotic agents; Z88.6 Allergy status to analgesic agent; Z88.5 Allergy status to narcotic agent; Z91.018 Allergy to other foods
CPT/HCPCS: 36415; 93005; 80053; 82550; 83735; 84100; 85025; 81001; 80143; 87086; 80179; 70450; 74177; 99285; 96360; 96361; Q9967

== ENCOUNTER 2020-12-09 | Emergency (ER) | payer BC | END 2020-12-09 21:33 | disposition home or self-care (01) ==